=== PATIENT | female | born 1970 | race Two or more races ===

== ENCOUNTER 2018-03-17 13:57 | Emergency (ER) | payer MEDICAID ==
[~2018-03-17] VITALS: Ht 167.6 cm; Wt 96.2 kg
[2018-03-17 14:00] VITALS: BP 121/56
--- NOTE | 2018-03-17 14:52 | Emergency Room Report ---
History of Present Illness General Chief Complaint: Abdominal Pain Source: Patient Present Illness HPI This patient has a known history of fibroids. She has had heavy menses and vaginal bleeding for the past 3 months. She has seen her primary care physician and has undergone multiple courses of different hormones. She was evaluated by electrotype finisher 2 days ago and was given an injection and an oral medication that she is unsure of the name. She states that she continues to have heavy bleeding despite this intervention. She states she also feels lightheaded. She denies recent illness. She denies cough or congestion. She does have intermittent crampy pelvic pain that coincides with the heavy bleeding. She denies fever or chills. She denies nausea or vomiting. She denies chest pain or shortness of breath. She has no other complaints. Allergies: Coded Allergies: No Known Allergies (Unverified , 03/17/18) Patient History Past Medical History: see triage record, other - Fibroids, anemia Social History: Denies: smoking, alcohol use, drug use Last Menstrual Period: unknown Reviewed Nursing Documentation: PMH: Agreed; PSxH: Agreed Nursing Documentation-PMH Past Medical History: No History, Except For Review of Systems All Other Systems: negative except mentioned in HPI Physical Exam Vital Signs Date Time Temp Pulse Resp B/P (MAP) Pulse Ox O2 Delivery O2 Flow Rate FiO2 03/17/18 14:05 98.4 119 16 135/79 100 Room Air Sp02 EP Interpretation: reviewed, normal General Appearance: no apparent distress, alert, GCS 15, non-toxic Head: normocephalic, atraumatic Eyes: bilateral eye normal inspection, bilateral eye PERRL ENT: hearing grossly normal, normal pharynx, no angioedema, normal voice Neck: full range of motion, supple/symm/no masses Respiratory: chest non-tender, lungs clear, normal breath sounds, no respiratory distress, no retraction, no accessory muscle use, speaking full sentences Cardiovascular #1: regular rate, rhythm, no edema Gastrointestinal: normal bowel sounds, non tender, soft, non-distended, no guarding, no rebound Rectal: deferred Musculoskeletal: back normal, gait/station normal, normal range of motion, non- tender Neurologic: alert, oriented x3, responsive, motor strength/tone normal, sensory intact, speech normal Psychiatric: judgement/insight normal, memory normal, mood/affect normal, no suicidal/homicidal ideation Skin: normal color, no rash, warm/dry, well hydrated Medical Decision Making Diagnostic Impression: Primary Impression: Uterine fibroid Additional Impression: Dysfunctional uterine bleeding ER Course This patient has known fibroids and dysfunctional uterine bleeding. The patient 's hemoglobin is 9.9. The patient reports that last month her hemoglobin was 9.6. This is very reassuring. The patient is being followed by a electrotype finisher and has undergone multiple hormone therapies for her menorrhagia. I feel that given how stable and unremarkable this patient's evaluation is that she should follow up with the electrotype finisher caring for her. I feel that it is safest for her to keep seeing the same physician. I did not identify an emergency medical condition. The patient was reassured and given close return precautions and follow-up instructions. Please note that this Emergency Department Report was dictated using [employer] carver technology software, occasionally this can lead to erroneous entry secondary to interpretation by the dictation equipment. Laboratory Tests Test 03/17/18 14:40 White Blood Count 12.7 K/UL (4.8-10.8) H Red Blood Count 3.82 M/UL (4.20-5.40) L Hemoglobin 9.9 G/DL (12.0-16.0) L Hematocrit 31.5 % (37.0-47.0) L Mean Corpuscular Volume 82 FL (80-99) Mean Corpuscular Hemoglobin 25.9 PG (27.0-31.0) L Mean Corpuscular Hemoglobin Concent 31.4 G/DL (32.0-36.0) L Red Cell Distribution Width 14.1 % (11.6-14.8) Platelet Count 335 K/UL (150-450) Mean Platelet Volume 6.3 FL (6.5-10.1) L Neutrophils (%) (Auto) 68.5 % (45.0-75.0) Lymphocytes (%) (Auto) 27.4 % (20.0-45.0) Monocytes (%) (Auto) 2.6 % (1.0-10.0) Eosinophils (%) (Auto) 0.7 % (0.0-3.0) Basophils (%) (Auto) 0.7 % (0.0-2.0) Urine Color Yellow Urine Appearance Clear Urine pH 6 (4.5-8.0) Urine Specific [place] 1.020 (1.005-1.035) Urine Protein 1+ (NEGATIVE) H Urine Glucose (UA) Negative (NEGATIVE) Urine Ketones 1+ (NEGATIVE) H Urine Blood 2+ (NEGATIVE) H Urine Nitrite Negative (NEGATIVE) Urine Bilirubin Negative (NEGATIVE) Urine Urobilinogen 1 MG/DL (0.0-1.0) H Urine Leukocyte Esterase 1+ (NEGATIVE) H Urine RBC 2-4 /HPF (0 - 2) H Urine WBC 0-2 /HPF (0 - 2) Urine Squamous Epithelial Cells Few /LPF (NONE/OCC) Urine Bacteria Few /HPF (NONE) Urine HCG, Qualitative Negative (NEGATIVE) Sodium Level 137 MMOL/L (136-145) Potassium Level 3.7 MMOL/L (3.5-5.1) Chloride Level 102 MMOL/L (98-107) Carbon Dioxide Level 24 MMOL/L (21-32) Anion Gap 11 mmol/L (5-15) Blood Urea Nitrogen 11 mg/dL (7-18) Creatinine 0.8 MG/DL (0.55-1.30) Estimate Glomerular Filtration Rate > 60 mL/min (>60) Glucose Level 134 MG/DL (74-106) H Calcium Level 9.4 MG/DL (8.5-10.1) Total Bilirubin 0.1 MG/DL (0.2-1.0) L Aspartate Amino Transferase (AST) 22 U/L (15-37) Alanine Aminotransferase (ALT) 23 U/L (12-78) Alkaline Phosphatase 60 U/L (46-116) Total Protein 9.1 G/DL (6.4-8.2) H Albumin 3.7 G/DL (3.4-5.0) Globulin 5.4 g/dL Albumin/Globulin Ratio 0.7 (1.0-2.7) L Last Vital Signs Date Time Temp Pulse Resp B/P (MAP) Pulse Ox O2 Delivery O2 Flow Rate FiO2 03/17/18 14:05 98.4 119 16 135/79 100 Room Air Status: improved Disposition: HOME, SELF-CARE Condition: Stable Sara Hernandez DO Mar 17, 2018 14:52
[2018-03-17 14:58] LABS: APPEARANCE,URINE CLEAR; BASOPHILS % (AUTO) 0.7 % (0.0-2.0); BILIRUBIN, URINE NEGATIVE (NEGATIVE); EOSINOPHILS % (AUTO) 0.7 % (0.0-3.0); GLUCOSE, URINE (UA) NEGATIVE (NEGATIVE); HEMATOCRIT 31.5 % (37.0-47.0); HEMOGLOBIN 9.9 G/DL (12.0-16.0); KETONES,URINE 1+ (NEGATIVE); LEUKOCYTE ESTERASE ,URINE 1+ (NEGATIVE); LYMPHOCYTES % (AUTO) 27.4 % (20.0-45.0); MEAN CORPUSCULAR VOLUME 82 FL (80-99); MONOCYTES % (AUTO) 2.6 % (1.0-10.0); NEUTROPHILS % (AUTO) 68.5 % (45.0-75.0); NITRITE,URINE NEGATIVE (NEGATIVE); PH,URINE 6 (4.5-8.0); PLATELET COUNT 335 K/UL (150-450); PROTEIN,URINE 1+ (NEGATIVE); RED BLOOD COUNT 3.82 M/UL (4.20-5.40); RED CELL DISTRIBUTION WIDTH 14.1 % (11.6-14.8); UROBILINOGEN,URINE 1 MG/DL (0.0-1.0); WHITE BLOOD COUNT 12.7 K/UL (4.8-10.8)
[2018-03-17 14:59] LABS: COLOR,URINE YELLOW
[2018-03-17 15:10] LABS: ANION GAP 11 mmol/L (5-15); BLOOD UREA NITROGEN 11 mg/dL (7-18); CALCIUM 9.4 MG/DL (8.5-10.1); CARBON DIOXIDE 24 MMOL/L (21-32); CHLORIDE 102 MMOL/L (98-107); CREATININE 0.8 MG/DL (0.55-1.30); POTASSIUM 3.7 MMOL/L (3.5-5.1); SODIUM 137 MMOL/L (136-145)
[2018-03-17 15:14] LABS: ALANINE AMINOTRANSFERASE 23 U/L (12-78); ALBUMIN 3.7 G/DL (3.4-5.0); ALBUMIN/GLOBULIN RATIO 0.7 (1.0-2.7); ALKALINE PHOSPHATASE 60 U/L (46-116); ASPARTATE AMINO TRANSFERASE 22 U/L (15-37); BILIRUBIN,TOTAL 0.1 MG/DL (0.2-1.0)
[2018-03-17 16:03] VITALS: BP 127/86
== END 2018-03-17 16:09 | disposition home or self-care (01) ==
LOC: EMR 15:01
DX: D25.9 Leiomyoma of uterus, unspecified (principal); N93.8 Other specified abnormal uterine and vaginal bleeding
CPT/HCPCS: 36415; 80053; 81003; 81025; 85025; 86850; 86900; 86901; 96360; 99284

== ENCOUNTER 2018-11-22 20:32 | Emergency (ER) | payer MEDICAID ==
[~2018-11-22] VITALS: Ht 165.1 cm; Wt 90.7 kg
[2018-11-22 20:41] VITALS: BP 125/71
--- NOTE | 2018-11-22 20:41 | NUR ---
ED Nurse Note: Pt ambulated to ED from home c/o redness and blisters on scalp x1yr. Pt is A&Ox4, VSS
--- NOTE | 2018-11-22 20:48 | Emergency Room Report ---
History of Present Illness General Chief Complaint: Skin Rash/Abscess Source: Patient Present Illness HPI The patient presents with a itchy scalp rash. Its been there for 6 months. Her doctor has given her hydrocortisone and steroid shampoos. This seemed to make the rash worse. She denies any fevers. She sometimes has a mild headache but denies this now. She denies diabetes. There is no upper respiratory symptoms, nausea, vomiting, diarrhea, dysuria. The only medication the patient takes is iron. Allergies: Coded Allergies: No Known Allergies (Unverified , 11/22/18) Patient History Past Medical History: see triage record Social History: Denies: smoking, alcohol use, drug use Social History Narrative from home Now: No Reviewed Nursing Documentation: PMH: Agreed; PSxH: Agreed Nursing Documentation-PMH Hx Cardiac Problems: Yes - uterine fibroids Review of Systems Constitutional: Reports: see HPI Respiratory: Denies: shortness of breath Gastrointestinal: Reports: see HPI Genitourinary: Reports: see HPI Musculoskeletal: Denies: joint pain Skin: Reports: see HPI Neurological: Reports: see HPI Endocrine: Reports: see HPI Physical Exam Vital Signs Date Time Temp Pulse Resp B/P (MAP) Pulse Ox O2 Delivery O2 Flow Rate FiO2 11/22/18 20:34 98.2 83 16 125/71 (89) 99 Room Air Sp02 EP Interpretation: reviewed, normal General Appearance: well appearing, no apparent distress, GCS 15, non-toxic Head: normocephalic, other - See skin Eyes: bilateral eye normal inspection, bilateral eye PERRL, bilateral eye EOMI ENT: moist mucus membranes Neck: supple Respiratory: speaking full sentences Cardiovascular #1: regular rate, rhythm Cardiovascular #2: 2+ radial (R) Gastrointestinal: normal inspection Musculoskeletal: gait/station normal Neurologic: alert, oriented x3, grossly normal Psychiatric: mood/affect normal Skin: warm/dry, other - annular lesions scalp Medical Decision Making Diagnostic Impression: Primary Impression: Tinea capitis ER Course Patient presents with itchy scalp rash that been present for 6 months. She has not used antifungals. Based on the clinical appearance this is a tinea capitis. Antifungals are indicated. Also I discussed use of Benadryl for itching. There is no evidence of cellulitis at this time. Patient stable for outpatient observation and treatment. Last Vital Signs Date Time Temp Pulse Resp B/P (MAP) Pulse Ox O2 Delivery O2 Flow Rate FiO2 11/22/18 20:55 98.2 82 16 125/71 99 Room Air Status: unchanged Disposition: HOME, SELF-CARE Condition: Stable Scripts Clotrimazole* (LOTRIMIN*) 15 Gm Cream..g. 1 APPLIC TOPIC QHS, #30 GM 1 Refill Prov: Jamie Jesus MD 11/22/18 Ketoconazole (Ketoconazole) 120 Ml Shampoo 1 APPLIC TOPIC DAILY, #240 ML 1 Refill Prov: Jamie Jesus MD 11/22/18 Jamie Jesus MD Nov 22, 2018 20:48
[2018-11-22] MEDS ORDERED: CLOTRIMAZOLE15 GM TOPIC (20:50)
[2018-11-22] MEDS ORDERED: NIZORAL 2% S1 APPLIC TOPIC (20:50)
[2018-11-22 20:55] VITALS: BP 125/71
--- NOTE | 2018-11-22 20:55 | NUR ---
ER DISCHARGE NOTE: Patient is cleared to be discharged per ERMD, pt is aox4, on room air, with stable vital signs. pt was given dc and prescription instructions, pt was able to verbalize understanding, pt id band removed. pt is able to ambulate with steady gait. pt took all belongings.
== END 2018-11-22 20:55 | disposition home or self-care (01) ==
LOC: EMR 20:49
DX: B35.0 Tinea barbae and tinea capitis (principal)
CPT/HCPCS: 99282